=== PATIENT | female | born 1995 | race Native Hawaiian/Other Pacific Islander ===

== ENCOUNTER 2018-12-12 10:17 | Outpatient (CLI) | payer OTHER | END 2018-12-12 10:18 | disposition home or self-care (01) | LOC: C.LAB 10:17 | DX: R53.82 Chronic fatigue, unspecified (principal); R73.9 Hyperglycemia, unspecified; E78.2 Mixed hyperlipidemia ==

== ENCOUNTER 2019-01-15 19:29 | Emergency (ER) | payer OTHER ==
[2019-01-15 19:58] VITALS: RESP 16
--- NOTE | 2019-01-15 20:29 | C.PDOC ---
History Of Present Illness 23 y/o female with a PMHx of dysfunctional uterine bleeding, presents to the ED complaining of abdominal pain that began 3 days ago. Patient states her menstrual cycle ended today. Otherwise she denies any abnormal vaginal discharge, constipation, diarrhea, urinary symptoms, rashes, or ulcers. Denies any recent sexual activity, patient last had sex 1 month ago. Pain is localized to the LLQ and described as throbbing. <Tanner Fagan - Last Filed: 01/15/19 23:09> History Per: Patient History/Exam Limitations: no limitations Onset/Duration Of Symptoms: Days (x 4) Current Symptoms Are (Timing): Still Present Location Of Pain/Discomfort: LLQ Abnormal Vaginal Bleeding: No Last Menstral Period: 01/15/19 <Tanner Fagan - Last Filed: 01/15/19 23:09> <Maryellen Hayes - Last Filed: 01/17/19 18:56> Time Seen by Provider: 01/15/19 20:29 Chief Complaint (Nursing): Abdominal Pain Past Medical History Reviewed: Historical Data, Nursing Documentation, Vital Signs Vital Signs: Last Vital Signs Temp 98.1 F 01/15/19 19:55 Pulse 74 01/15/19 19:55 Resp 16 01/15/19 19:55 BP 124/81 01/15/19 19:55 Pulse Ox 98 01/15/19 19:55 - Medical History Other PMH: Dysfunctional uterine bleeding Surgical History: No Surg Hx Family History: States: No Known Family Hx - Social History Hx Alcohol Use: Yes Hx Substance Use: No - Immunization History Hx Tetanus Toxoid Vaccination: Yes Hx Influenza Vaccination: Yes Hx Pneumococcal Vaccination: No <Tanner Fagan - Last Filed: 01/15/19 23:09> Vital Signs: Last Vital Signs Temp 98.5 F 01/15/19 23:18 Pulse 67 01/15/19 23:18 Resp 16 01/15/19 23:18 BP 117/76 01/15/19 23:18 Pulse Ox 99 01/15/19 23:18 <Maryellen Hayes - Last Filed: 01/17/19 18:56> Review Of Systems Constitutional: Negative for: Fever, Chills, Sweats Cardiovascular: Negative for: Chest Pain Respiratory: Negative for: Shortness of Breath Gastrointestinal: Positive for: Abdominal Pain (LLQ). Negative for: Nausea, Vomiting, Diarrhea, Constipation Genitourinary: Negative for: Dysuria, Frequency, Vaginal Discharge Musculoskeletal: Negative for: Back Pain Skin: Negative for: Rash Neurological: Negative for: Weakness, Numbness, Dizziness <Tanner Fagan Last Filed: 01/15/19 23:09> Physical Exam - Physical Exam Appears: Non-toxic, No Acute Distress Skin: Warm, Dry Head: Normacephalic Eye(s): bilateral: Normal Inspection, PERRL, EOMI Oral Mucosa: Moist Neck: Trachea Midline, Supple, Other (No meningeal signs- negative kernig's and brudzinskis) Chest: Symmetrical Cardiovascular: Rhythm Regular, No Friction Rub Respiratory: No Rales, No Rhonchi, No Wheezing Gastrointestinal/Abdominal: Soft, Tenderness (to the LLQ), No Distention, No Guarding, No Rebound Back: No CVA Tenderness, No Vertebral Tenderness Extremity: Bilateral: Normal Color And Temperature Pulses: Left Dorsalis Pedis: Normal, Right Dorsalis Pedis: Normal Neurological/Psych: Oriented x3 Gait: Steady <Tanner Fagan Last Filed: 01/15/19 23:09> ED Course And Treatment - Laboratory Results Result Diagrams: 01/15/19 21:33 01/15/19 21:33 O2 Sat by Pulse Oximetry: 98 (on RA) Pulse Ox Interpretation: Normal <Tanner Fagan Last Filed: 01/15/19 23:09> - Laboratory Results Result Diagrams: 01/15/19 21:33 01/15/19 21:33 Lab Results: Total Bilirubin 0.2 mg/dL (0.2-1.3) 01/15/19 21:33 AST 39 U/L (14-36) H D 01/15/19 21:33 ALT 46 U/L (9-52) 01/15/19 21:33 Alkaline Phosphatase 71 U/L (38-126) 01/15/19 21:33 Total Protein 8.0 g/dL (6.3-8.3) 01/15/19 21:33 Albumin 4.9 g/dL (3.5-5.0) 01/15/19 21:33 Globulin 3.1 gm/dL (2.2-3.9) 01/15/19 21:33 Albumin/Globulin Ratio 1.6 (1.0-2.1) 01/15/19 21:33 Lipase 106 U/L (23-300) 01/15/19 21:33 Urine Color Yellow (YELLOW) 01/15/19 21:33 Urine Clarity Hazy (Clear) 01/15/19 21:33 Urine pH 6.0 (5.0-8.0) 01/15/19 21:33 Ur Specific [place] 1.028 (1.003-1.030) 01/15/19 21:33 Urine Protein Negative mg/dL (NEGATIVE) 01/15/19 21:33 Urine Glucose (UA) Normal mg/dL (Normal) 01/15/19 21:33 Urine Ketones Negative mg/dL (NEGATIVE) 01/15/19 21:33 Urine Blood Negative (NEGATIVE) 01/15/19 21:33 Urine Nitrate Negative (NEGATIVE) 01/15/19 21:33 Urine Bilirubin Negative (NEGATIVE) 01/15/19 21:33 Urine Urobilinogen 2.0 mg/dL (0.2-1.0) H 01/15/19 21:33 Ur Leukocyte Esterase Neg Fab/uL (Negative) 01/15/19 21:33 Urine WBC (Auto) 2 /hpf (0-5) 01/15/19 21:33 Urine RBC (Auto) 2 /hpf (0-3) 01/15/19 21:33 Ur Squamous Epith Cells 3 /hpf (0-5) 01/15/19 21:33 Urine Bacteria Rare (<OCC) 01/15/19 21:33 Urine HCG, Qual Negative (NEGATIVE) 01/15/19 21:36 Urine HCG, Qual Negative (NEGATIVE) 01/15/19 21:36 <Maryellen Hayes - Last Filed: 01/17/19 18:56> Medical Decision Making Medical Decision Makin23 y/o female with a PMHx of dysfunctional uterine bleeding, presents with c/o LLQ abdominal pain. LMP finished today. Otherwise she denies any abnormal vag inal discharge, constipation, diarrhea, urinary symptoms, fevers, chills, night sweats, rashes, or ulcers. Denies any recent sexual activity. Impression: Likely ovarian cyst vs colitis Initial Plan: - CMP - Lipase - CBC - Urinalysis - Pelvic/Transvag US - NS IV fluids - 15 mg IV Toradol - Reassess 1108 pt notes improved pain abd mildly ttp on LLQ Coilitis, will rx at home given mildly elevated wbc endorsed fiborid as well and need [facility] w/ return indications and f/u <GraciaTanner - Last Filed: 01/15/19 23:09> Disposition - Disposition Disposition Time: 23:03 <GraciaTanner - Last Filed: 01/15/19 23:09> <Maryellen Hayes - Last Filed: 01/17/19 18:56> - Disposition Referrals: Sari Graff MD [Medical Doctor] - Sarabjit Kim MD [Staff Provider] - [facility] [facility] [Outside] [facility] [Outside] [facility] [Outside] [facility] [Outside] [facility] [Outside] Disposition: HOME/ ROUTINE Condition: GOOD Additional Instructions: VINCENZO MATHUR, thank you for letting us take care of you today. Your provider was Tanner Fagan and you were treated for ABDOMINAL PAIN. The emergency medical care you received today was directed at your acute symptoms. If you were prescribed any medication, please fill it and take as directed. It may take several days for your symptoms to resolve. Return to the Emergency Department if your symptoms worsen, do not improve, or if you have any other problems. Please contact your doctor or call one of the physicians/clinics you have been referred to that are listed on the Patient Visit Information form that is included in your discharge packet. Bring any paperwork you were given at discharge with you along with any medications you are taking to your follow up visit. Our treatment cannot replace ongoing medical care by a primary care provider outside of the emergency department. Thank you for allowing the [facility] team to be part of your care today. If you had an X-Ray or CT scan: A Radiologist will review the ED reading if any change in treatment is needed we will contact you. If you had a blood, urine, or wound culture: It will take several days for the r esults, if any change in treatment is needed we will contact you. If you had an STI test: It will take 48 hours for the results. Please call after 1 week if you have not heard back. Prescriptions: Ciprofloxacin HCl [Cipro] 500 mg PO BID 10 Days #20 tablet Metronidazole [Flagyl] 500 mg PO TID 10 Days #30 tablet Instructions: Colitis (DC) Forms: [facility] (Portuguese) - Clinical Impression Clinical Impression: Colitis, Fibroid - Scribe Statement The provider has reviewed the documentation as recorded by the Gillianibyue Aquino Provider Attestation: All medical record entries made by the Gillianibe were at my direction and personally dictated by me. I have reviewed the chart and agree that the record accurately reflects my personal performance of the history, physical exam, medical decision making, and the department course for this patient. I have also personally directed, reviewed, and agree with the discharge instructions and disposition. <Tanner Fagan - Last Filed: 01/15/19 23:09> Addendum Addendum: 01/17/19 18:54 spoke to patient and advised to get outpt renal ultrasound and colace and miralax <Maryellen Hayes - Last Filed: 01/17/19 18:56>
[2019-01-15] MEDS ORDERED: Sodium Chloride 0.9% 1,000 ML IV ONE (21:05)
[2019-01-15 21:37] LABS: BASO # 0.1 K/uL (0.0-0.2); EOS # 0.6 K/uL (0.0-0.7); EOS % 5.1 % (0.0-4.0); HEMOGLOBIN 13.8 g/dL (11.0-16.0); LYMPH # 2.6 K/uL (1.0-4.3); LYMPH % 23.3 % (20.0-40.0); MEAN CELL VOLUME 86.5 fL (81.0-99.0); MEAN CORPUSCULAR HEMOGLOBIN 28.6 pg (27.0-31.0); MEAN CORPUSCULAR HGB CONC 33.1 g/dL (33.0-37.0); MEAN PLATELET VOLUME 7.2 fL (7.2-11.7); MONO # 0.9 K/uL (0.0-0.8); MONO % 7.9 % (0.0-10.0); NEUT % 62.7 % (50.0-75.0); RBC 4.81 Mil/uL (3.80-5.20); RED CELL DISTRIBUTION WIDTH 13.2 % (11.5-14.5); WHITE BLOOD COUNT 11.1 K/uL (4.8-10.8)
[2019-01-15 21:51] LABS: ALB/GLOB RATIO 1.6 (1.0-2.1); ALBUMIN 4.9 g/dL (3.5-5.0); ALT/SGPT 46 U/L (9-52); AST/SGOT 39 U/L (14-36); BLOOD UREA NITROGEN 13 mg/dL (7-17); CALCIUM 9.8 mg/dl (8.6-10.4); GFR NON-AFRICAN AMERICAN > 60; LIPASE 106 U/L (23-300)
[2019-01-15] MEDS ORDERED: Iodixanol 320 MG/ML 100 ML BOTTLE IV ONE (22:03)
[2019-01-15 22:27] LABS: SQUAMOUS EPITHIAL 3 /hpf (0-5); URINE BACTERIA RARE (<OCC); URINE BILIRUBIN NEGATIVE (NEGATIVE); URINE BLOOD NEGATIVE (NEGATIVE); URINE CLARITY Hazy (Clear); URINE COLOR Yellow (YELLOW); URINE GLUCOSE (UA) NORMAL (Normal); URINE LEUKOCYTE ESTERASE NEG Leu/uL (Negative); URINE PROTEIN NEGATIVE (NEGATIVE)
[2019-01-15 23:26] VITALS: BP 117/76; PULSE 67; TEMP 98.5; O2SAT 99
--- NOTE | 2019-01-16 10:07 | US ---
Date of service: 01/15/2019 HISTORY: llq abd pain COMPARISON: None available. TECHNIQUE: Transabdominal and transvaginal pelvic ultrasound was FINDINGS: UTERUS: Measures 5.9 x 3 point by 3.7 cm. Anteverted and normal in size. There is a 7 x 6 x 7 mm intramural posterior wall fibroid in the midbody of the uterus. ENDOMETRIUM: Measures 6.4 mm in diameter. 2.6 x 2.1 x 3.2 normal in appearance. There is a nonspecific 3 mm calcification anterior inferiorly. CERVIX: No cervical abnormality identified. RIGHT OVARY: Measures 3.2 x 2.2 x 3.2 cm. No solid mass. Normal flow. LEFT OVARY: Measures cm. No solid mass. Normal flow. FREE FLUID: No significant free fluid noted. OTHER FINDINGS: None. IMPRESSION: 1. 7 mm intramural posterior wall fibroid in the midbody of the uterus. 2. 3 mm nonspecific calcification in the endometrium anterior inferiorly. A preliminary report was provided by [facility].
--- NOTE | 2019-01-16 12:15 | CT ---
Date of service: 01/15/2019 PROCEDURE: CT and pelvis HISTORY: Left lower quadrant abdominal pain. COMPARISON: No prior study available comparison TECHNIQUE: Contiguous axial images of the abdomen and pelvis. Oral contrast was administered. No IV contrast given. Coronal and Sagittal reformats generated. Radiation dose: Total exam DLP = 543.54 mGy-cm. This CT exam was performed using one or more of the following dose reduction techniques: Automated exposure control, adjustment of the mA and/or kV according to patient size, and/or use of iterative reconstruction technique. FINDINGS: LOWER THORAX: Unremarkable. LIVER: Liver is enlarged measuring over 20 cm in CC dimension. Moderate fatty hepatic infiltration. Portal and splenic veins are opacified. No obvious hepatic mass collection or calcification . GALLBLADDER AND BILE DUCTS: Gallbladder incompletely distended which presumably accounts for slight: Gallbladder wall. No evidence of intraluminal gallbladder calculi. PANCREAS: Unremarkable. No mass. No ductal dilatation. SPLEEN: Spleen exhibits normal size and attenuation pattern without mass collection calcification ADRENALS: No adrenal lesions. KIDNEYS AND URETERS: Kidneys demonstrates symmetric nephrograms. No evidence of nephrolithiasis hydronephrosis. There is a small approximately 4.25 mm rounded low-attenuation focus anterolateral cortex mid to lower pole left kidney that could represent a hyperdense cyst. Follow-up renal ultrasound could confirm and exclude solid components. BLADDER: Kidneys demonstrate symmetric nephrograms. No evidence of nephrolithiasis or hydronephrosis REPRODUCTIVE: Unremarkable as visualized APPENDIX: No evidence of acute appendicitis. BOWEL: Evaluation of the bowel somewhat limited due to the lack of oral contrast.. The stomach is partially distended with food debris liquid and air. Visualized loops small bowel exhibit normal contour caliber. No evidence of mechanical small bowel obstruction. There is a moderate amount of stool seen with cecum at ascending and proximal transverse colon. Air is present throughout most of the remaining colon. There are minor infiltration changes in the mesentery adjacent to short segment the mid descending colon with no significant wall thickening. Findings could represent epiploica appendagitis-fat necrosis.. No evidence of colonic wall thickening seen. Clinical correlation recommended. PERITONEUM: Unremarkable. No fluid collection. No free air. Tiny fat containing umbilical hernia. LYMPH NODES: Unremarkable. No enlarged lymph nodes. VASCULATURE: Unremarkable. No aortic aneurysm. No aortic atherosclerotic calcification or mural plaque present. BONES: There are no acute compression fractures no retropulsed fragments. Osseous structures appear intact OTHER FINDINGS: None. IMPRESSION: There are minor infiltration changes in the mesentery adjacent to short segment the mid descending colon with no significant wall thickening. Findings could represent epiploica appendagitis-fat necrosis. Clinical correlation recommended. A. No evidence of colonic wall thickening. Hepatomegaly with fatty infiltration Probable hyperdense renal cyst for which renal ultrasound could performed to confirm and exclude any solid components. PA review folder for follow up.
== END 2019-01-15 23:35 | disposition home or self-care (01) ==
LOC: C.ER 19:29
DX: K52.9 Noninfective gastroenteritis and colitis, unspecified (principal); D25.9 Leiomyoma of uterus, unspecified
CPT/HCPCS: 74177; 76830; 76856; 80053; 81001; 83690; 84703; 85025; 96374; 99284; J1885; J7030; Q9967